=== PATIENT | male | born 1945 | race Caucasian/White ===

== ENCOUNTER 2017-11-24 07:00 | Day surgery (SDC) | payer OTHER ==
[~2017-11-24] VITALS: Ht 172.7 cm; Wt 72.6 kg
[~2017-11-24 07:00] MED LIST: ASPI81EC PO; BISA5EC PO; CETI5 PO; CLOP75; HYDACE5 PO; LOSA50; OMEP20ER PO; PANT40; POLY17UD PO
== END 2017-11-24 09:56 | disposition home or self-care (01) ==
LOC: ORSCSDS 07:00
DX: Z86.010 Personal history of colon polyps (principal); D12.0 Benign neoplasm of cecum; D12.2 Benign neoplasm of ascending colon; D12.3 Benign neoplasm of transverse colon; K57.30 Diverticulosis of large intestine without perforation or abscess without bleeding; K64.8 Other hemorrhoids; Z80.0 Family history of malignant neoplasm of digestive organs; I10 Essential (primary) hypertension; K21.9 Gastro-esophageal reflux disease without esophagitis; Z79.899 Other long term (current) drug therapy; Z79.82 Long term (current) use of aspirin; Z87.891 Personal history of nicotine dependence
CPT/HCPCS: 88305; 93005; 93010; J0330; J1980; J2250; J2405; Q9968

== ENCOUNTER 2019-01-11 12:24 | Emergency (ER) | payer OTHER ==
[~2019-01-11] VITALS: Ht 172.7 cm; Wt 72.6 kg
[~2019-01-11 12:24] MED LIST changes: +ALL DAY ALLERGY10 M1 PO; -CETI5 PO; -LOSA50; +LOSA50 PO; -PANT40; +PANT40 PO
[2019-01-11] MEDS ORDERED: ELIQUIS5 MG PO (12:38)
[2019-01-11] MEDS ORDERED: FINA5 PO (12:39)
== END 2019-01-11 13:12 | disposition home or self-care (01) ==
LOC: ER 12:24
DX: R68.84 Jaw pain (principal); Z79.899 Other long term (current) drug therapy; Z87.891 Personal history of nicotine dependence
CPT/HCPCS: 99282

== ENCOUNTER → 2019-09-19 | Outpatient (CLI) | payer OTHER ==
[~2019-09-19] MED LIST changes: +ELIQUIS5 MG PO; +FINA5 PO
== END | disposition home or self-care (01) ==
LOC: OLS 10:59 → LAB SHORT 10:59
PROVIDERS: Internal Medicine
DX: R89.9 Unspecified abnormal finding in specimens from other organs, systems and tissues (principal)
CPT/HCPCS: 81050

== ENCOUNTER 2021-06-25 12:55 | Day surgery (SDC) | payer OTHER ==
[~2021-06-25] VITALS: Ht 172.7 cm; Wt 70.4 kg
[~2021-06-25 12:55] MED LIST changes: +AMPI500; +ELIQUIS5 M2 PO; +HYDROCHLOROTH12.5 MG PO; +LOSARTAN-HCTZ1 EACH PO; +METAMUCIL POWD575 GM; +MULTIPLE VITAM1 EACH PO; +ZYRTEC10 M2 PO
--- NOTE | 2021-06-25 14:52 | NUR ---
06/25/21 1452 Sabrina Rodas NACL 4ML USED FOR POLYP REMOVAL
== END 2021-06-25 15:27 | disposition home or self-care (01) ==
LOC: ORSCSDS 12:55
PROVIDERS: Internal Medicine Gastroenterology
PROC: 0DBL8ZX Excision of Transverse Colon, Via Natural or Artificial Opening Endoscopic, Diagnostic (ICD-10-PCS; principal; 2021-06-25 14:15)
PROC: 0D758ZZ Dilation of Esophagus, Via Natural or Artificial Opening Endoscopic (ICD-10-PCS; principal; 2021-06-25 14:15)
PROC: 0DB58ZX Excision of Esophagus, Via Natural or Artificial Opening Endoscopic, Diagnostic (ICD-10-PCS; principal; 2021-06-25 14:15)
PROC: 0DBN8ZX Excision of Sigmoid Colon, Via Natural or Artificial Opening Endoscopic, Diagnostic (ICD-10-PCS; principal; 2021-06-25 14:15)
PROC: 0DBP8ZX Excision of Rectum, Via Natural or Artificial Opening Endoscopic, Diagnostic (ICD-10-PCS; principal; 2021-06-25 14:15)
DX: R13.12 Dysphagia, oropharyngeal phase (principal); K31.89 Other diseases of stomach and duodenum; D12.3 Benign neoplasm of transverse colon; K62.1 Rectal polyp; K57.30 Diverticulosis of large intestine without perforation or abscess without bleeding; K64.8 Other hemorrhoids; Z12.11 Encounter for screening for malignant neoplasm of colon; Z86.010 Personal history of colon polyps; Z80.0 Family history of malignant neoplasm of digestive organs; I10 Essential (primary) hypertension; K76.0 Fatty (change of) liver, not elsewhere classified; I48.0 Paroxysmal atrial fibrillation; Z79.01 Long term (current) use of anticoagulants; Z79.899 Other long term (current) drug therapy; Z87.891 Personal history of nicotine dependence
CPT/HCPCS: 88305; J0330; J0461; J2405; J2704

== ENCOUNTER 2021-11-14 01:20 | Emergency (ER) | payer OTHER ==
[~2021-11-14] VITALS: Ht 175.3 cm; Wt 74.8 kg
== END 2021-11-14 01:58 | disposition home or self-care (01) ==
LOC: ER 01:20
DX: J02.9 Acute pharyngitis, unspecified (principal); Z87.891 Personal history of nicotine dependence
CPT/HCPCS: 99283

== ENCOUNTER 2022-09-10 10:02 | Emergency (ER) | payer OTHER ==
[~2022-09-10] VITALS: Ht 172.7 cm; Wt 72.6 kg
[2022-09-10 10:56] LABS: BASOPHILS ABSOLUTE AUTO 0.03 K/mm3 (0.00-0.23); BASOPHILS PERCENT AUTO 0 % (0-2); EOSINOPHILS ABSOLUTE AUTO 0.05 K/mm3 (0.00-0.68); EOSINOPHILS PERCENT AUTO 1 % (0-6); Hemoglobin 14.1 g/dL (13.5-17.5); IMMATURE GRAN ABSOLUTE AUTO 0.03 K/mm3 (0.00-0.10); IMMATURE GRAN PERCENT AUTO 0 % (0-1); LYMPHOCYTES ABSOLUTE AUTO 1.18 K/mm3 (0.84-5.20); LYMPHOCYTES PERCENT AUTO 13 % (21-46); MONOCYTES ABSOLUTE AUTO 0.86 K/mm3 (0.16-1.47); MONOCYTES PERCENT AUTO 9 % (4-13); Mean Corpuscular HGB 31.9 pg (26.0-34.0); Mean Corpuscular HGB Conc 33.6 g/dL (31.5-36.5); Mean Corpuscular Volume 95 fL (80-100); Mean Platelet Volume 10.3 fL (9.1-12.4); NEUTROPHILS ABSOLUTE AUTO 7.12 K/mm3 (1.96-9.15); NEUTROPHILS PERCENT AUTO 77 % (41-73); Platelet Count 249 K/mm3 (150-400); RDW Coefficient Variation 12.4 % (11.7-14.2); RDW Standard Deviation 43.6 fL (35.1-46.3); Red Blood Cell Count 4.42 M/mm3 (4.30-5.90); White Blood Cell Count 9.27 K/mm3 (4.00-11.30)
[2022-09-10 11:17] LABS: Albumin, Blood 3.7 g/dL (3.4-5.0); Albumin/Globulin Ratio 1.1 (0.8-1.8); Bilirubin, Total 0.9 mg/dL (0.1-1.0); Bun/Creatinine Ratio 14.7 (12.0-20.0); Calcium, Blood 9.2 mg/dL (8.5-10.1); Creatinine, Blood 1.09 mg/dL (0.60-1.20); Globulin, Blood 3.5 g/dL (2.2-4.0); Potassium, Blood 4.1 mmol/L (3.5-5.5); Total Protein, Blood 7.2 g/dL (6.4-8.2)
[2022-09-10] MEDS ORDERED: AMOCLA875 PO (11:57)
== END 2022-09-10 12:01 | disposition home or self-care (01) ==
LOC: ER 10:02
PROVIDERS: Physician Assistant
DX: K57.32 Diverticulitis of large intestine without perforation or abscess without bleeding (principal); Z88.8 Allergy status to other drugs, medicaments and biological substances; Z79.899 Other long term (current) drug therapy; Z79.01 Long term (current) use of anticoagulants; Z87.891 Personal history of nicotine dependence
CPT/HCPCS: 36415; 74177; 80053; 85025; Q9967

== ENCOUNTER 2023-04-07 11:19 | Day surgery (SDC) | payer OTHER ==
[~2023-04-07] VITALS: Ht 172.7 cm; Wt 72.2 kg
[~2023-04-07 11:19] MED LIST changes: +AMOCLA875 PO
[2023-04-07] MEDS ORDERED: ASPI81CH (11:48)
[2023-04-07] MEDS ORDERED: ATOR10 (11:48)
--- NOTE | 2023-04-07 13:26 | NUR ---
04/07/23 1326 Oly Tai SCOPE CHANGED FROM ADULT PINK TO PED GREEN/YELLOW
[2023-04-07 14:27] VITALS: BP 111/58
== END 2023-04-07 14:30 | disposition home or self-care (01) ==
LOC: ORSCSDS 11:19
PROVIDERS: Internal Medicine Gastroenterology
PROC: 0DJD8ZZ Inspection of Lower Intestinal Tract, Via Natural or Artificial Opening Endoscopic (ICD-10-PCS; principal; 2023-04-07 12:30)
DX: Z12.11 Encounter for screening for malignant neoplasm of colon (principal); Z86.010 Personal history of colon polyps; Z80.0 Family history of malignant neoplasm of digestive organs; K57.30 Diverticulosis of large intestine without perforation or abscess without bleeding; K64.8 Other hemorrhoids; I10 Essential (primary) hypertension; I48.91 Unspecified atrial fibrillation; Z86.73 Personal history of transient ischemic attack (TIA), and cerebral infarction without residual deficits; Z79.899 Other long term (current) drug therapy
CPT/HCPCS: J2704; J7120

== ENCOUNTER 2023-05-13 11:13 | Observation (INO) | payer OTHER ==
[~2023-05-13] VITALS: Ht 172.7 cm; Wt 71.2 kg
[~2023-05-13 11:13] MED LIST changes: +ASPI81CH PO; +ATOR10
[2023-05-13 11:47] LABS: BASOPHILS ABSOLUTE AUTO 0.03 K/mm3 (0.00-0.23); BASOPHILS PERCENT AUTO 0 % (0-2); EOSINOPHILS PERCENT AUTO 1 % (0-6); Hematocrit 40.6 % (37.0-53.0); IMMATURE GRAN ABSOLUTE AUTO 0.02 K/mm3 (0.00-0.10); IMMATURE GRAN PERCENT AUTO 0 % (0-1); LYMPHOCYTES ABSOLUTE AUTO 1.23 K/mm3 (0.84-5.20); LYMPHOCYTES PERCENT AUTO 16 % (21-46); MONOCYTES ABSOLUTE AUTO 0.74 K/mm3 (0.16-1.47); MONOCYTES PERCENT AUTO 9 % (4-13); Mean Corpuscular HGB 32.7 pg (26.0-34.0); Mean Corpuscular HGB Conc 34.5 g/dL (31.5-36.5); Mean Corpuscular Volume 95 fL (80-100); Mean Platelet Volume 10.6 fL (9.1-12.4); NEUTROPHILS ABSOLUTE AUTO 5.78 K/mm3 (1.96-9.15); NEUTROPHILS PERCENT AUTO 73 % (41-73); Platelet Count 230 K/mm3 (150-400); RDW Coefficient Variation 12.5 % (11.7-14.2); RDW Standard Deviation 43.5 fL (35.1-46.3); Red Blood Cell Count 4.28 M/mm3 (4.30-5.90)
[2023-05-13 12:07] LABS: Albumin/Globulin Ratio 1.3 (0.8-1.8); Bilirubin, Total 0.7 mg/dL (0.1-1.0); Bun/Creatinine Ratio 21.5 (12.0-20.0); Calcium, Blood 9.8 mg/dL (8.5-10.1); Creatinine, Blood 1.07 mg/dL (0.60-1.20); Globulin, Blood 3.1 g/dL (2.2-4.0); Potassium, Blood 4.4 mmol/L (3.5-5.5); Total Protein, Blood 7.1 g/dL (6.4-8.2)
[2023-05-13] MEDS ORDERED: ATOR40TA PO (16:06)
[2023-05-13 17:31] VITALS: BP 152/90
[2023-05-13 18:11] VITALS: BP 162/76
[2023-05-13 19:25] VITALS: BP 154/78
--- NOTE | 2023-05-13 23:04 | NUR ---
NOTIFIED BY TELE MONITOR REGARDING PAUSES. PT WITH 2 SEC PAUSES, MAX OF 2.35 SEC. 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
--- NOTE | 2023-05-14 04:36 | NUR ---
SHIFT SUMMARY NO ACUTE CHANGES NOTED DURING SHIFT. PT ALERT ORIENTED, CALLS APPROPRIATELY. PT REMAINS ON RA, INDEPENDENT IN ROOM/DOUGLAS. MULTIPLE OCCURENCES OF PAUSES DURING SHIFT, HOSPITALIST NOTIFIED. NO C/O PAIN. WILL CONTINUE TO MONITOR. CALL LIGHT WITHIN REACH.
[2023-05-14 05:34] VITALS: BP 163/78
[2023-05-14 07:33] VITALS: BP 151/72
--- NOTE | 2023-05-14 09:00 | NUR ---
PT PLEASANT COOP A/OO X3. DENIES PAIN, DENIES CHEST PAIN, PRESSURE. STATES FEELS BACK TO BASELINE. 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 PER TELE. LOW 36 HR LAST NITE. 3.34 PAUSE. PRESENTLY AFLUTTER AT 59. BASELINE. SPOKE TO DR ROMEO RE TELE. HE STATES TO OORDER ZIOPATCH FOR DISCHARGE. LUNGS CLEAR, RESP EASY, UNLABORED. ON R.A. BT X4 LAST BM YSET. VOIDS INDEPENDANT TO BATHROOM. BED IN LOW POSITIOIIN, CALL LITE IN REACH, CALLS APPROP. PT DENIES ANY INFLAMMABLES.
--- NOTE | 2023-05-14 14:30 | NUR ---
PT DISCHARGE REVIEWED WITH PT AND . IV PULLED BY JULIOE. TELE REMOVED AND RETURNED . PT HAD ZIOPATCH IN PAST AND THIS NEW ONE PLACED TODAY. PT AMBULATED SELF TO DOOR FOR DISCHARGE AT 1405
== END 2023-05-14 15:30 | disposition home or self-care (01) ==
LOC: ER 11:13 → MEDS 11:14 → ENPENDDIS 05-14 13:12 → MEDS 05-14 15:30
PROVIDERS: Physician Assistant; ADMIT Internal Medicine
DX: G45.9 Transient cerebral ischemic attack, unspecified (principal); I48.92 Unspecified atrial flutter; N40.0 Benign prostatic hyperplasia without lower urinary tract symptoms; I10 Essential (primary) hypertension; Z87.891 Personal history of nicotine dependence
CPT/HCPCS: 70450; 80053; 85025; 93005; 93010; 93246; 96372; 97112-CQ; 97161; 99285-25; A9270; G0378; J1650; J7030

== ENCOUNTER 2024-10-02 10:01 | Emergency (ER) | payer OTHER ==
[~2024-10-02] VITALS: Ht 172.7 cm; Wt 74.8 kg
[~2024-10-02 10:01] MED LIST changes: +ACET500 PO; +ATOR40TA PO; +MULVITA PO; +NASONEX 24HR AL17 ML; +PSYLLIUM SEED PO
[2024-10-02 10:34] LABS: BASOPHILS ABSOLUTE AUTO 0.04 K/mm3 (0.00-0.23); BASOPHILS PERCENT AUTO 0 % (0-2); EOSINOPHILS ABSOLUTE AUTO 0.11 K/mm3 (0.00-0.68); EOSINOPHILS PERCENT AUTO 1 % (0-6); Hematocrit 41.3 % (37.0-53.0); Hemoglobin 14.1 g/dL (13.5-17.5); IMMATURE GRAN ABSOLUTE AUTO 0.03 K/mm3 (0.00-0.10); IMMATURE GRAN PERCENT AUTO 0 % (0-1); LYMPHOCYTES ABSOLUTE AUTO 1.45 K/mm3 (0.84-5.20); LYMPHOCYTES PERCENT AUTO 15 % (21-46); MONOCYTES PERCENT AUTO 9 % (4-13); Mean Corpuscular HGB 32.9 pg (26.0-34.0); Mean Corpuscular HGB Conc 34.1 g/dL (31.5-36.5); Mean Corpuscular Volume 96 fL (80-100); Mean Platelet Volume 10.4 fL (9.1-12.4); NEUTROPHILS ABSOLUTE AUTO 7.45 K/mm3 (1.96-9.15); NEUTROPHILS PERCENT AUTO 75 % (41-73); Platelet Count 223 K/mm3 (150-400); RDW Coefficient Variation 12.3 % (11.7-14.2); RDW Standard Deviation 43.4 fL (35.1-46.3); Red Blood Cell Count 4.29 M/mm3 (4.30-5.90); White Blood Cell Count 9.98 K/mm3 (4.00-11.30)
[2024-10-02 10:51] LABS: Source, Urine Clean Catch
[2024-10-02 10:56] LABS: Appearance, Urine Clear (Clear); Bilirubin, Urine Neg (Neg); Blood, Urine Neg (Neg); Glucose Qualitative, Urine Neg (Neg); Ketones, Urine Neg (Neg); Leukocyte Esterase, Urine Neg (Neg); Nitrite, Urine Neg (Neg); Protein, Urine Neg (Neg); Urobilinogen, Urine NORM (Normal)
[2024-10-02 10:57] LABS: Albumin, Blood 3.7 g/dL (3.4-5.0); Albumin/Globulin Ratio 1.2 (0.8-1.8); Calcium, Blood 9.1 mg/dL (8.5-10.1); Globulin, Blood 3.2 g/dL (2.2-4.0); Potassium, Blood 3.6 mmol/L (3.5-5.5); Total Protein, Blood 6.9 g/dL (6.4-8.2)
[2024-10-02 11:02] LABS: Color, Urine Pale Yellow (P-Yellow)
[2024-10-02] MEDS ORDERED: Amoxicillin/Clavulanate K 875 MG Tab PO ONE (12:20)
[2024-10-02] MEDS ORDERED: AMOCLA875 PO (12:38)
[2024-10-02 12:45] VITALS: BP 151/78
== END 2024-10-02 12:45 | disposition home or self-care (01) ==
LOC: ER 10:01
PROVIDERS: Physician Assistant
DX: K57.32 Diverticulitis of large intestine without perforation or abscess without bleeding (principal); Z79.82 Long term (current) use of aspirin; Z79.899 Other long term (current) drug therapy; Z88.8 Allergy status to other drugs, medicaments and biological substances; Z91.048 Other nonmedicinal substance allergy status
CPT/HCPCS: 74177; 80053; 81003; 85025; 99284-25; A9270; Q9967

== ENCOUNTER 2025-01-29 00:47 | Inpatient (IN) | payer OTHER ==
[~2025-01-29] VITALS: Ht 172.7 cm; Wt 69.5 kg
[~2025-01-29 00:47] MED LIST changes: +OXYC5 PO
[2025-01-29 01:10] LABS: BASOPHILS ABSOLUTE AUTO 0.04 K/mm3 (0.00-0.23); BASOPHILS PERCENT AUTO 0 % (0-2); EOSINOPHILS PERCENT AUTO 1 % (0-6); Hematocrit 43.1 % (37.0-53.0); Hemoglobin 15.5 g/dL (13.5-17.5); IMMATURE GRAN ABSOLUTE AUTO 0.04 K/mm3 (0.00-0.10); IMMATURE GRAN PERCENT AUTO 0 % (0-1); LYMPHOCYTES ABSOLUTE AUTO 1.57 K/mm3 (0.84-5.20); LYMPHOCYTES PERCENT AUTO 13 % (21-46); MONOCYTES ABSOLUTE AUTO 1.13 K/mm3 (0.16-1.47); MONOCYTES PERCENT AUTO 9 % (4-13); Mean Corpuscular HGB 33.3 pg (26.0-34.0); Mean Corpuscular Volume 93 fL (80-100); Mean Platelet Volume 10.7 fL (9.1-12.4); NEUTROPHILS PERCENT AUTO 77 % (41-73); Platelet Count 280 K/mm3 (150-400); RDW Coefficient Variation 12.4 % (11.7-14.2); RDW Standard Deviation 42.7 fL (35.1-46.3); Red Blood Cell Count 4.66 M/mm3 (4.30-5.90); White Blood Cell Count 12.48 K/mm3 (4.00-11.30)
[2025-01-29] MEDS ORDERED: Ondansetron HCl 2 MG / ML 2ML Vial IV ONE (01:20)
[2025-01-29 01:33] LABS: Albumin, Blood 4.8 g/dL (3.4-5.0); Albumin/Globulin Ratio 1.5 (0.8-1.8); Bilirubin, Total 1.3 mg/dL (0.1-1.0); Bun/Creatinine Ratio 23.1 (12.0-20.0); Calcium, Blood 10.4 mg/dL (8.5-10.1); Creatinine, Blood 0.95 mg/dL (0.60-1.20); Globulin, Blood 3.3 g/dL (2.2-4.0); Potassium, Blood 3.3 mmol/L (3.5-5.5); Total Protein, Blood 8.1 g/dL (6.4-8.2)
[2025-01-29 03:52] LABS: Source, Urine Clean Catch
[2025-01-29 03:54] LABS: Bilirubin, Urine Neg (Neg); Blood, Urine Neg (Neg); Glucose Qualitative, Urine Neg (Neg); Ketones, Urine 1+ (Neg); Leukocyte Esterase, Urine 1+ (Neg); Nitrite, Urine Neg (Neg); Protein, Urine Neg (Neg); Urobilinogen, Urine NORM (Normal)
[2025-01-29 03:58] LABS: Appearance, Urine Clear (Clear); Color, Urine Yellow (P-Yellow)
[2025-01-29 04:00] LABS: Bacteria Not Seen /hpf; Red Blood Cells, Urine Not Seen /hpf (0-2); Squamous Epithelial Cells Not Seen /hpf (Few); White Blood Cells, Urine 0-2 /hpf (0-5)
[2025-01-29] MEDS ORDERED: NS 1,000 ML IV SCH ×2 (06:05→14:30)
[2025-01-29] MEDS ORDERED: FentaNYL Citrate 50 MCG/ML 2 ML Injection IV PRN (06:05)
[2025-01-29] MEDS ORDERED: FLU VACC TS2024-25(6MOS UP)/PF 45 MCG/0.5 ML SYRINGE IM ONE (06:05)
[2025-01-29] MEDS ORDERED: Ondansetron HCl 2 MG / ML 2ML Vial IV PRN (06:05)
[2025-01-29] MEDS ORDERED: FentaNYL Citrate 50 MCG/ML 2 ML Injection IV ONE (06:30)
[2025-01-29] MEDS ORDERED: Potassium Chloride 40 MEQ in NS 250 ML IV ONE (06:35)
[2025-01-29 09:16] VITALS: BP 152/68
--- NOTE | 2025-01-29 09:28 | NUR ---
PT ARRIVED TO UNIT AT APROX 0920 FROM ER. PT TX TO BED 1 MIN ASSIST WITH LINES. TELE PLACED AND VERIFIED, PT AFIB HR 65, PT DOES REPORT HX AFIB THAT HE TAKES ASA DAILY FOR. PT REPORTS ABD PAIN AND NAUSEA STARTED AFTER DINNER LAST NIGHT AT APROX 1700, PT ALSO REPORTS THAT HE WAS SHAKING. ALL SX RESOLVED FOLLOWING ADMINISTRATION OF ANTIEMETIC. ABD SOFT, NON TENDER, DENIES FLATUS OR BM SINCE 01/28/25 AM, PT NPO AT THIS TIME.
[2025-01-29 12:34] VITALS: BP 169/84
--- NOTE | 2025-01-29 12:37 | NUR ---
DR CLARK TO ROOM FOR CONSULT, PLAN FOR PT TO HAVE SMALL BOWEL FOLLOW THROUGH TOMORROW. DR TSE NOTIFIED THAT PER TELE PT HAD 2.7 BEAT PAUSE, PT REPORTS THAT HE HAS A HX OF PAUSES.
[2025-01-29 15:02] VITALS: BP 120/64
--- NOTE | 2025-01-29 18:07 | NUR ---
PATIENT IS ALERT AND ORIENTED AND COOPERATIVE WITH CARE. ON RA. TELEMETRY IN PLACE. INDPENDENT IN THE ROOM, WALKS THE HALLS. NPO TODAY. NS @ 125/HR. NO C/O PAIN. PASSING GAS. PLAN FOR FOLLOW THROUGH TOMORROW. WILL CONTINUE TO MONITOR
[2025-01-29 19:44] VITALS: BP 131/68
[2025-01-29 22:26] VITALS: BP 123/59
--- NOTE | 2025-01-29 22:31 | NUR ---
PROVIDER NOTIFIED HOSPITALIST NOTIFIED OF RECENT EPISODES OF BRADYCARDIA AT 30-40BPM PER YEAST PUSHER. PT DENIES SX. NO NEW ORDERS OBTAINED.
[2025-01-29 23:53] VITALS: BP 134/64
--- NOTE | 2025-01-30 01:48 | NUR ---
PROVIDER UPDATE HOSPITALIST NOTIFIED PT HAD 3.09 SECOND PAUSE AND INTERVALS OF BRADYCARDIA AT 35-40BPM LASTING UP TO 6 SECONDS, PER BASEBALL GLOVE SHAPER. PT ASYMPTOMATIC AND REPORTS HX OF THIS. NEW LAB ORDERS OBTAINED. WILL IMPLEMENT DIRECTED.
[2025-01-30 02:54] LABS: BASOPHILS ABSOLUTE AUTO 0.02 K/mm3 (0.00-0.23); BASOPHILS PERCENT AUTO 0 % (0-2); EOSINOPHILS ABSOLUTE AUTO 0.12 K/mm3 (0.00-0.68); EOSINOPHILS PERCENT AUTO 2 % (0-6); Hematocrit 36.1 % (37.0-53.0); Hemoglobin 12.3 g/dL (13.5-17.5); IMMATURE GRAN ABSOLUTE AUTO 0.01 K/mm3 (0.00-0.10); IMMATURE GRAN PERCENT AUTO 0 % (0-1); LYMPHOCYTES ABSOLUTE AUTO 1.22 K/mm3 (0.84-5.20); LYMPHOCYTES PERCENT AUTO 20 % (21-46); MONOCYTES ABSOLUTE AUTO 0.64 K/mm3 (0.16-1.47); MONOCYTES PERCENT AUTO 11 % (4-13); Mean Corpuscular HGB 33.2 pg (26.0-34.0); Mean Corpuscular HGB Conc 34.1 g/dL (31.5-36.5); Mean Platelet Volume 10.6 fL (9.1-12.4); NEUTROPHILS ABSOLUTE AUTO 4.06 K/mm3 (1.96-9.15); NEUTROPHILS PERCENT AUTO 67 % (41-73); Platelet Count 185 K/mm3 (150-400); RDW Coefficient Variation 12.8 % (11.7-14.2); RDW Standard Deviation 45.8 fL (35.1-46.3); White Blood Cell Count 6.07 K/mm3 (4.00-11.30)
[2025-01-30 02:55] LABS: Mean Corpuscular Volume 98 fL (80-100)
[2025-01-30 03:04] VITALS: BP 152/64
[2025-01-30 03:17] LABS: Magnesium, Blood 1.9 mg/dL (1.6-2.4)
[2025-01-30 03:23] LABS: Albumin, Blood 3.3 g/dL (3.4-5.0); Albumin/Globulin Ratio 1.3 (0.8-1.8); Bilirubin, Total 1.1 mg/dL (0.1-1.0); Bun/Creatinine Ratio 15.3 (12.0-20.0); Creatinine, Blood 0.98 mg/dL (0.60-1.20); Globulin, Blood 2.5 g/dL (2.2-4.0); Potassium, Blood 3.7 mmol/L (3.5-5.5)
[2025-01-30 03:25] LABS: Calcium, Blood 8.3 mg/dL (8.5-10.1); Total Protein, Blood 5.8 g/dL (6.4-8.2)
--- NOTE | 2025-01-30 04:39 | NUR ---
SHIFT SUMMARY PT CONTINUES TO HAVE EPISODES OF BRADYCARDIA WITH HR IN 30'S AT TIMES, HOSPITALIST AWARE- SEE PREVIOUS NOTES. PT STATES BRADYCARDIA WITH INTERMITTENT HEART PALPITATIONS ARE BASELINE FOR HIM. DENIES PAIN OR CONCERN. IS NPO. IVF INFUSING PER ORDERS. IND/SBA IN ROOM. IS VOIDING, PASSING FLATUS AND REPORTS ONE BM DURING DAYSHIFT. PLAN FOR POTENTIAL SMALL BOWEL FOLLOW THROUGH TODAY. WILL GIVE REPORT TO ONCOMING RN.
--- NOTE | 2025-01-30 04:40 | NUR ---
PATIENT AND DOCTOR COMMUNICATION WHILE THIS RN WAS IN THE PATIENTS ROOM, HE ENDORSED HEART PALPITATIONS. PT REPORTS THIS HAPPENS AT HOME WHEN HIS HR DROPS AND THAT HIS PCP IS AWARE OF THIS, AND HAS RECIEVED TO TREATMENT FOR THIS IN THE PAST. PT EDUCATED TO ALERT STAFF FOR SOB, CP, PRESSURE, OR ANY CHANGES IN HOW HE FEELS. HOSPITALIST NOTIFIED, NO NEW ORDERS RECIEVED.
[2025-01-30 07:29] VITALS: BP 146/79
--- NOTE | 2025-01-30 13:22 | NUR ---
DR TSE IN TO SEE PT.
[2025-01-30 14:56] VITALS: BP 140/77
--- NOTE | 2025-01-30 15:01 | NUR ---
DISCHARGED PT SBFT COMPLETED AND PT HAVING MULTIPLE BMS. TOLERATERED FULL LIQUID DIET. VSS. IV DC'D. PT LEFT UNIT IN WC W/POSSESSIONS AND DC PAPERWORK IN HAND ACCOMPANIED BY SPOUSE TO RIDE OUTSIDE.
== END 2025-01-30 14:53 | disposition home or self-care (01) | DRG 390 ==
LOC: ER 00:47 → SURS 06:01
PROVIDERS: Student in an Organized Health Care Education/Training Program; ADMIT Internal Medicine
DX: K91.31 Postprocedural partial intestinal obstruction (principal); D72.829 Elevated white blood cell count, unspecified; E78.5 Hyperlipidemia, unspecified; E87.6 Hypokalemia; Y83.8 Other surgical procedures as the cause of abnormal reaction of the patient, or of later complication, without mention of misadventure at the time of the procedure; Z88.8 Allergy status to other drugs, medicaments and biological substances; Z79.82 Long term (current) use of aspirin; Z90.49 Acquired absence of other specified parts of digestive tract
CPT/HCPCS: 36415; 74177; 74250; 80053; 81001; 83735; 83880; 85025; 96374-59; 99285-25; J2405; J3010; J3480; J7030; J7050; Q9967

== ENCOUNTER 2025-06-01 06:59 | Day surgery (SDC) | payer OTHER ==
[~2025-06-01] VITALS: Ht 172.7 cm; Wt 66.2 kg
[2025-06-01] MEDS ORDERED: PANTOPRAZOLE SO40 M2 (07:32)
[2025-06-01 09:24] VITALS: BP 127/69
== END 2025-06-01 09:19 | disposition home or self-care (01) ==
LOC: ORSCSDS 06:59
PROVIDERS: Internal Medicine Gastroenterology
PROC: 0DJ08ZZ Inspection of Upper Intestinal Tract, Via Natural or Artificial Opening Endoscopic (ICD-10-PCS; principal; 2025-06-01 08:30)
DX: R13.10 Dysphagia, unspecified (principal); K21.9 Gastro-esophageal reflux disease without esophagitis; I48.0 Paroxysmal atrial fibrillation; Z80.0 Family history of malignant neoplasm of digestive organs; I10 Essential (primary) hypertension; E78.5 Hyperlipidemia, unspecified; Z86.73 Personal history of transient ischemic attack (TIA), and cerebral infarction without residual deficits; Z87.891 Personal history of nicotine dependence
CPT/HCPCS: J2704; J7120